=== PATIENT | female | born 1975 | race Caucasian/White ===

== ENCOUNTER 2016-08-16 08:01 | Emergency (ER) | payer MEDICAID ==
[~2016-08-16 08:01] MED LIST: ABILIFY10 M1 PO; ABILIFY10 MG PO; ADVAIR 2501 DISK W/D; ADVAIR 25028 BLISTER INH; ALBUTEROL INH 0.3 ML AERO NEB; ALBUTEROL0.83 MG/ML; ALBUTEROL17 GM; ALBUTEROL2.5 MG/3 M INH; BUTALBITAL-ASA1 EACH PO; CULTURELLE1 EAC1 PO; DOXYCYCLINE HY100 M3 PO; FOLIC ACID1 M1 PO; LEVAQUIN250 MG PO; MACROBID 100 M100 M1 PO; MACROBID 100 M100 MG PO; MACROBID100 MG/CAP PO; MULTIVITAMINS1 EAC6 PO; NO HOME MEDICATION XX; NORCO 5-325 TA1 EACH PO; NORCO 5/325 TAB1 TAB PO; NORCO 7.5-3251 EACH PO; PERCOCET 5-3251 EACH PO; PROPRANOLOL HCL20 M2 PO; TOPROL XL50 MG; TYLENOL WITH C1 EACH PO; VICODIN 5/500 T1 TAB PO; XANAX0.5 M1 PO; ZOFRAN ODT4 MG PO; ZOFRAN ODT4 MG/UDTAB PO; ZOFRAN4 M2 PO
[2016-08-16 08:42] LABS: URINE BILIRUBIN NEGATIVE (NEG); URINE BLOOD SMALL (NEG); URINE GLUCOSE (UA) NEGATIVE (NEG); URINE KETONE SMALL (NEG); URINE LEUKOCYTE ESTERASE POSITIVE (NEG); URINE NITRITE POSITIVE (NEG); URINE PROTEIN NEGATIVE (NEG); URINE SPECIFIC GRAVITY 1.025 (1.003-1.030)
[2016-08-16] MEDS ORDERED: NEURONTIN300 M1 PO (08:42)
[2016-08-16] MEDS ORDERED: TENORMIN50 M1 PO (08:42)
[2016-08-16 08:45] LABS: URINE APPEARANCE HAZY; URINE COLOR YELLOW
[2016-08-16 08:48] LABS: URINE BACTERIA 3+
[2016-08-16] MEDS ORDERED: PROAIR HFA8.5 GM INH (09:05)
[2016-08-16 09:11] LABS: BASO % 0.8 % (0-2); EOS % 0.4 % (0-7); HCT-HEMATOCRIT 38.2 % (34.0-49.0); HGB-HEMOGLOBIN 13.1 gm/dl (12.0-15.5); LYMPH ABSOLUTE COUNT 1.6 tho/cmm (0.8-4.5); MCHC MEAN CORPUSCULAR HGB CONC 34.3 % (32.0-36.0); MCV (MEAN CELL VOLUME) 107.9 fl (82.0-96.0); MEAN PLATELET VOLUME 8.5 cmc (9.4-12.4); MONOCYTE ABSOLUTE COUNT 0.5 tho/cmm (0.0-1.2); NEUTROPHILS % 57.8 % (40-80); PLATELET COUNT 319 tho/cmm (150-450); RED BLOOD COUNT 3.54 mil/cmm (4.00-5.20); RED CELL DISTRIBUTION WIDTH 12.7 % (12.4-16.4); WHITE BLOOD COUNT 5.1 tho/cmm (4.0-10.0)
[2016-08-16 09:22] LABS: ANION GAP 15 mmol/L (0-20); BLOOD UREA NITROGEN 15 mg/dl (6-24); CALCIUM 8.8 mg/dl (8.5-10.5); CARBON DIOXIDE-VENOUS 27 mmol/L (22-32); CHLORIDE 105 mmol/l (96-110); CREATININE 0.52 mg/dl (0.50-1.10); GLUCOSE 87 mg/dL (70-110); POTASSIUM 3.7 mmol/L (3.7-5.1); PREGNANCY-SERUM NEGATIVE (NEGATIVE); SODIUM 143 mmol/L (135-145); eGFR VALUE FOR BLACK >90 mL/Min
[2016-08-16] MEDS ORDERED: MACROBID 100 M100 M1 PO (09:32)
[2016-08-16] MEDS ORDERED: ULTRAM50 M1 PO (09:32)
[2016-08-17] MEDS ORDERED: NORCO 5-325 TA1 EACH PO (16:16)
[2016-08-17] MEDS ORDERED: ZOFRAN4 M2 PO (16:16)
[2017-01-04] MEDS ORDERED: TYLENOL WITH C1 EACH PO (11:51)
[2017-01-04] MEDS ORDERED: VENTOLIN HFA18 G2 PO (11:52)
[2017-01-04] MEDS ORDERED: ULTRAM50 M1 PO (11:52)
[2017-01-04] MEDS ORDERED: EPINEPHRINE IM (11:54)
[2017-01-08] MEDS ORDERED: PERCOCET 5-3251 EACH PO (11:13)
[2017-01-08] MEDS ORDERED: IBUPROFEN800 M1 PO (11:15)
== END 2016-08-16 11:11 ==
LOC: EDMED 08:01
PROVIDERS: Emergency Medicine
DX: N39.0 Urinary tract infection, site not specified (principal); J45.909 Unspecified asthma, uncomplicated; Z87.442 Personal history of urinary calculi; Z98.890 Other specified postprocedural states; Z79.51 Long term (current) use of inhaled steroids; Z79.899 Other long term (current) drug therapy; F17.200 Nicotine dependence, unspecified, uncomplicated
CPT/HCPCS: J1885; J2270; J7030

== ENCOUNTER 2016-08-18 06:40 | Day surgery (SDC) | payer MEDICAID ==
[~2016-08-18 06:40] MED LIST changes: +NEURONTIN300 M1 PO; +PROAIR HFA8.5 GM INH; +TENORMIN50 M1 PO; +ULTRAM50 M1 PO
[2017-01-04] MEDS ORDERED: TYLENOL WITH C1 EACH PO (11:51)
[2017-01-04] MEDS ORDERED: VENTOLIN HFA18 G2 PO (11:52)
[2017-01-04] MEDS ORDERED: ULTRAM50 M1 PO (11:52)
[2017-01-04] MEDS ORDERED: EPINEPHRINE IM (11:54)
[2017-01-08] MEDS ORDERED: PERCOCET 5-3251 EACH PO (11:13)
[2017-01-08] MEDS ORDERED: IBUPROFEN800 M1 PO (11:15)
== END 2016-08-18 12:30 ==
LOC: WSU 06:40 → SHSB 06:41 → ORW 08:37 → PACU 09:45 → SHSB 10:40
PROC: 0UB24ZZ Excision of Bilateral Ovaries, Percutaneous Endoscopic Approach (ICD-10-PCS; principal; 2016-08-18)
DX: N83.201 Unspecified ovarian cyst, right side (principal); N83.202 Unspecified ovarian cyst, left side; M79.7 Fibromyalgia; F41.9 Anxiety disorder, unspecified; F32.9 Major depressive disorder, single episode, unspecified; Z88.0 Allergy status to penicillin; Z88.2 Allergy status to sulfonamides; Z88.8 Allergy status to other drugs, medicaments and biological substances; Z79.899 Other long term (current) drug therapy; Z98.890 Other specified postprocedural states
CPT/HCPCS: J1170; J3010; J7030

== ENCOUNTER 2016-09-04 08:21 | Emergency (ER) | payer MEDICAID ==
[2016-09-04 09:34] LABS: BASO % 0.4 % (0-2); EOS % 1.3 % (0-7); EOSINOPHIL ABSOLUTE COUNT 0.1 tho/cmm (0.0-0.7); HCT-HEMATOCRIT 35.9 % (34.0-49.0); HGB-HEMOGLOBIN 12.2 gm/dl (12.0-15.5); IMMATURE GRANULOCYTES ABSOLUTE 0.01 tho/cmm (0-0.03); IMMATURE GRANULOCYTES PERCENT 0.1 % (0-0.3); LYMPH % 17.6 % (20-45); LYMPH ABSOLUTE COUNT 1.2 tho/cmm (0.8-4.5); MCH (MEAN CORPUSCULAR HGB) 37.1 pg (28.0-32.0); MCV (MEAN CELL VOLUME) 109.1 fl (82.0-96.0); MONO % 6.9 % (0-12); MONOCYTE ABSOLUTE COUNT 0.5 tho/cmm (0.0-1.2); NEUTROPHIL ABSOLUTE COUNT 5.1 tho/cmm (1.6-8.0); NEUTROPHIL-AUTOMATED 5.1 tho/cmm (1.6-8.0); NEUTROPHILS % 73.7 % (40-80); PLATELET COUNT 232 tho/cmm (150-450); RED BLOOD COUNT 3.29 mil/cmm (4.00-5.20); RED CELL DISTRIBUTION WIDTH 12.7 % (12.4-16.4); WHITE BLOOD COUNT 6.9 tho/cmm (4.0-10.0)
[2016-09-04 09:46] LABS: ALBUMIN 3.9 g/dl (3.5-5.0); ALKALINE PHOSPHATASE 155 U/L (33-138); ALT/SGPT 44 U/L (12-78); ANION GAP 15 mmol/L (0-20); AST/SGOT 131 U/L (10-40); BILIRUBIN,TOTAL 0.8 mg/dl (0-1.5); BLOOD UREA NITROGEN 12 mg/dl (6-24); CALCIUM 8.6 mg/dl (8.5-10.5); CARBON DIOXIDE-VENOUS 23 mmol/L (22-32); CHLORIDE 102 mmol/l (96-110); CREATININE 0.62 mg/dl (0.50-1.10); GLUCOSE 92 mg/dL (70-110); LIPASE 150 U/L (73-393); POTASSIUM 3.3 mmol/L (3.7-5.1); SODIUM 137 mmol/L (135-145); eGFR VALUE FOR BLACK >90 mL/Min
[2016-09-04] MEDS ORDERED: ABILIFY10 M1 PO (09:55)
[2016-09-04] MEDS ORDERED: MACROBID 100 M100 M1 PO (09:55)
[2016-09-04] MEDS ORDERED: LEXAPRO10 M2 PO (09:56)
[2016-09-04] MEDS ORDERED: XANAX0.5 M1 PO (09:56)
[2016-09-04] MEDS ORDERED: TENORMIN50 M1 PO (09:56)
[2016-09-04 10:59] LABS: URINE APPEARANCE CLEAR; URINE BILIRUBIN NEGATIVE (NEG); URINE BLOOD SMALL (NEG); URINE COLOR YELLOW; URINE GLUCOSE (UA) NEGATIVE (NEG); URINE KETONE MODERATE (NEG); URINE LEUKOCYTE ESTERASE POSITIVE (NEG); URINE NITRITE POSITIVE (NEG); URINE PH 6.5 (5.0-8.0); URINE PROTEIN SMALL (NEG); URINE SPECIFIC GRAVITY 1.005 (1.003-1.030)
[2016-09-04 11:10] LABS: URINE BACTERIA 3+; URINE EPITHELIAL CELLS RARE /[HPF] (0-10); URINE RBC 0 /[HPF] (0-5)
[2016-09-04] MEDS ORDERED: IBUPROFEN800 M1 PO (12:00)
[2016-09-04] MEDS ORDERED: NORCO 5-325 TA1 EACH PO (12:00)
[2016-09-04] MEDS ORDERED: FIORICET 50-301 EAC1 PO (12:00)
[2016-09-04] MEDS ORDERED: NEURONTIN300 M1 PO (12:01)
[2016-09-04] MEDS ORDERED: PYRIDIUM200 M2 PO (13:50)
[2016-09-04] MEDS ORDERED: ZOFRAN ODT4 MG PO (13:50)
[2016-09-04] MEDS ORDERED: NORCO 5/3251 TAB PO (13:50)
[2017-01-04] MEDS ORDERED: TYLENOL WITH C1 EACH PO (11:51)
[2017-01-04] MEDS ORDERED: ULTRAM50 M1 PO (11:52)
[2017-01-04] MEDS ORDERED: VENTOLIN HFA18 G2 PO (11:52)
[2017-01-04] MEDS ORDERED: EPINEPHRINE IM (11:54)
[2017-01-08] MEDS ORDERED: PERCOCET 5-3251 EACH PO (11:13)
[2017-01-08] MEDS ORDERED: IBUPROFEN800 M1 PO (11:15)
== END 2016-09-04 14:31 ==
LOC: EDMED 08:21
PROVIDERS: Emergency Medicine
DX: N39.0 Urinary tract infection, site not specified (principal); E87.6 Hypokalemia; I48.91 Unspecified atrial fibrillation; F17.200 Nicotine dependence, unspecified, uncomplicated; Z87.442 Personal history of urinary calculi; Z79.82 Long term (current) use of aspirin; Z79.899 Other long term (current) drug therapy
CPT/HCPCS: J1170; J2405; J2550; J7030; Q9967